=== PATIENT | female | born 1950 | race Caucasian/White ===

== ENCOUNTER 2016-07-18 19:59 | Inpatient (IN) | payer BC, MEDICARE ==
[2016-07-18] MEDS ORDERED: PROPOFOL 100 ML IV ONE (20:21)
[2016-07-18] MEDS ORDERED: NORMAL SALINE 1000 ML 1,000 ML IV ONE (20:40)
[2016-07-18 21:03] LABS: ABSOLUTE BASOPHILS # (AUTO) 0.1 10^3/uL (0.0-0.2); ABSOLUTE EOSINOPHILS # (AUTO) 0.1 10^3/uL (0.0-0.6); ABSOLUTE LYMPHOCYTES (AUTO) 4.1 10^3/uL (0.5-4.7); ABSOLUTE MONOCYTES (AUTO) 0.4 10^3/uL (0.1-1.4); ABSOLUTE NEUT (AUTO) 8.8 10^3/uL (1.7-8.2); BASOPHILS % (AUTO) 0.7 % (0-2); HEMATOCRIT 43.7 % (36.0-47.0); HEMOGLOBIN 13.8 g/dL (12.0-15.5); HGB HCT DIFFERENCE -2.3; LYMPHOCYTES % (AUTO) 30.6 % (13-45); MEAN CORPUSCULAR HEMOGLOBIN 32.4 pg (27.0-33.4); MEAN CORPUSCULAR HGB CONC 31.6 g/dL (32.0-36.0); MONOCYTES % (AUTO) 2.6 % (3-13); RED BLOOD COUNT 4.25 10^6/uL (3.72-5.28); SEGMENTED NEUTROPHILS % (AUTO) 65.1 % (42-78); WHITE BLOOD COUNT 13.6 10^3/uL (4.0-10.5)
[2016-07-18 21:06] LABS: PROTHROMBIN TIME 28.9 SEC (11.4-15.4)
[2016-07-18 21:07] LABS: PARTIAL THROMBOPLASTIN TIME 36.7 SEC (23.5-35.8)
[2016-07-18 21:11] LABS: MEAN CORPUSCULAR VOLUME 101 fl (80-97)
[2016-07-18 21:15] LABS: ALANINE AMINOTRANSFERASE 26 U/L (9-52); ALBUMIN 3.1 g/dL (3.5-5.0); ALKALINE PHOSPHATASE 83 U/L (38-126); ANION GAP 18 (5-19); ASPARTATE AMINO TRANSFERASE 38 U/L (14-36); BILIRUBIN,TOTAL 0.5 mg/dL (0.2-1.3); BLOOD UREA NITROGEN 18 mg/dL (7-20); CALCIUM 8.2 mg/dL (8.4-10.2); CARBON DIOXIDE 19 mmol/L (22-30); CHLORIDE 108 mmol/L (98-107); CREATINE KINASE 71 U/L (30-135); CREATININE RESULT 1.15 mg/dL (0.52-1.25); GLUCOSE 219 mg/dL (75-110); LIPASE 141.9 U/L (23-300); MAGNESIUM 1.9 mg/dL (1.6-2.3); POTASSIUM 5.2 mmol/L (3.6-5.0); SODIUM 144.7 mmol/L (137-145); TOTAL PROTEIN 5.5 g/dL (6.3-8.2)
[2016-07-18 21:26] LABS: VENOUS BLOOD BASE EXCESS -12.9 mmol/L; VENOUS BLOOD HCO3 20.9 mmol/L (20-32)
[2016-07-18 21:26] LABS: CREATINE KINASE MB 1.92 ng/mL (<4.55); TROPONIN I < 0.012 ng/mL
[2016-07-18] MEDS ORDERED: DILTIAZEM HCL/D5W 125 ML IV PRN (21:32)
[2016-07-18] MEDS ORDERED: DILTIAZEM HCL INJ 25 MG/5 ML VIAL IV ONE ×2 (21:32→22:07)
[2016-07-18 21:33] LABS: VENOUS BLOOD PCO2 86.3 mmHg (35-63)
[2016-07-18] MEDS ORDERED: CEFEPIME 1 GM/D5W RTU 50 ML IV ONE (21:33)
[2016-07-18] MEDS ORDERED: MORPHINE SULFATE 10 MG/ML INJ IV ONE (21:33)
[2016-07-18] MEDS ORDERED: FUROSEMIDE INJ/PF 40 MG/4 ML SDV IV ONE ×2 (21:34→23:53)
--- NOTE | 2016-07-18 22:05 | EKG REPORT ---
SEVERITY:- ABNORMAL ECG - SINUS TACHYCARDIA VS PAT WITH 2:1 OR AFLUTTER WITH 2:1 CONDUCTION BORDERLINE LEFT AXIS DEVIATION ANTERIOR INFARCT, OLD PROLONGED QT INTERVAL : Confirmed by: Jacqueline Keller 18-Jul-2016 22:04:06
[2016-07-18 22:21] LABS: APPEARANCE,URINE CLEAR; BILIRUBIN,URINE NEGATIVE (NEGATIVE); GLUCOSE, URINE NEGATIVE (NEGATIVE); KETONES,URINE NEGATIVE (NEGATIVE); LEUKOCYTE ESTERASE,URINE NEGATIVE (NEGATIVE); NITRITE,URINE NEGATIVE (NEGATIVE); PROTEIN,URINE 100 mg/dL (NEGATIVE); URINE SPECIFIC GRAVITY 1.018; UROBILINOGEN,URINE NEGATIVE mg/dL (<2.0)
--- NOTE | 2016-07-18 23:46 | ER Document Report ---
ED General - General Stated Complaint: DIFFICULITY BREATHING TRAVEL OUTSIDE OF THE [place] IN LAST 30 DAYS: No - HPI Patient complains to provider of: respiratory failure Notes: Patient coming in for restarted stress respiratory failure. According to EMS patient has a history of COPD according to family upon their arrival had exacerbation earlier in the day that progressed until restarted stress. Upon their arrival patient was saturating 70% on room air. Patient was transitioned over to C Pap transport to the ER. Patient that all 4 extremities and talking with EMS prior to arrival however upon arrival patient moaning the pain no spontaneous eye movement withdrawing to pain. Patient's skin was mottled patient's patient's feet were blue as well. Patient was initially placed on BiPAP prior to my arrival however upon entering the room informed nursing staff that we will be intubating this patient. - Related Data Allergies/Adverse Reactions: propoxyphene HCl [From Darvon] Allergy (Verified 07/03/16 06:07) Past Medical History - Social History Smoking Status: Smoker,Current Status Unk Family History: Reviewed & Not Pertinent - Past Medical History Cardiac Medical History: Reports: Hx Atrial Fibrillation, Hx Congestive Heart Failure, Hx Coronary Artery Disease, Hx DVT, Hx Heart Attack, Hx Hypercholesterolemia, Hx Hypertension Pulmonary Medical History: Reports: Hx COPD Neurological Medical History: Reports: Hx Cerebrovascular Accident GI Medical History: Reports: Hx Gastroesophageal Reflux Disease Psychiatric Medical History: Reports: Hx Depression Past Surgical History: Reports: Hx Section - x3, Hx Coronary Stent, Hx Tonsillectomy - Immunizations Hx Diphtheria, Pertussis, Tetanus Vaccination: No Review of Systems - Review of Systems -: Yes ROS unobtainable due to patient's medical condition - Critical condition intubated Physical Exam - Vital signs Vitals: Resp 21 H 07/18/16 20:01 Interpretation: Hypertensive, Tachycardic, Hypoxic, Tachypneic - General General appearance: Unresponsive In distress: Severe - HEENT Head: Normocephalic, Atraumatic Eyes: Normal Conjunctiva: Normal Cornea: Normal Pupils: PERRL Neck: Normal - Respiratory Respiratory status: Respiratory distress Chest status: Nontender Breath sounds: Rales, Rhonchi Chest palpation: Normal - Cardiovascular Rhythm: Irregularly irregular, Tachycardia Heart sounds: Normal auscultation Murmur: No - Abdominal Inspection: Normal Distension: No distension Bowel sounds: Normal Tenderness: Nontender Organomegaly: No organomegaly - Back Back: Normal, Nontender - Extremities General upper extremity: Normal inspection, Nontender, Normal temperature. No: Normal color - Mottling General lower extremity: Normal inspection, Nontender. No: Normal color - Mottling patient did had cyanotic toes bilaterally, Normal temperature - Cold feet pulses palpable bilateral dorsalis pedis - Neurological [place] Coma Scale Eye Opening: To Pain [place] Coma Scale Verbal: None [place] Coma Scale Motor: Withdraws to Pain [place] Coma Scale Total: 7 - Psychological Associated symptoms: Other - Unresponsive - Skin Skin Temperature: Warm Skin Moisture: Dry Skin Color: negative: Normal - Mottled Course - Re-evaluation Re-evalutation: 07/19/16 03:05 Patient with poor vascular access upon arrival and I was placed into the right tibia by charge nurse Patient with intubation and placement of NG tube and central line. The intubation was made difficult as that the ER stretcher was placed in the lowest position and was unable to be raised. Did have to use device could of been transitioned over to a Mac blade I did use a bougie to go between the cords then passed a size 8 tube over the bougie. Confirmation of tube placement was confirmed with visualization of the tube within the cords with the glide scope. Social line placed without difficulty. Chest x-ray showed diffuse airspace disease because the patient's severe tachycardia H fibrillation this is more thought to be flash pulmonary edema due to high demand however the possibility of pneumonia cannot be ruled out. Pyridium is also consistent with the pink froth coming out of the patient's ET tube. Because of the patient being unresponsive upon arrival she head CT was performed showing only an old stroke. No acute process. Lab work obtained showed severe rest for acidosis with hypercapnia and settings were adjusted patient did have some more hypoxic episodes going into the mid 80s patient did have her PEEP adjusted ventilator settings adjusted and patient did have to be bagged off the ventilator multiple times after initial intubation. Antibiotics were started for pneumonia patient was also given a dose of Lasix due to pulmonary edema. At this time because patient is therapeutic on her Coumadin did not think she is likely has a PE. Patient's case was discussed with hospitalist patient will be admitted to the ICU 07/19/16 03:08 - Vital Signs Vital signs: Temp Pulse Resp BP Pulse Ox 98.9 F 22 H 97/67 L 93 07/19/16 02:35 07/19/16 02:35 07/19/16 02:35 07/19/16 02:35 - Laboratory Result Diagrams: 07/18/16 20:52 07/19/16 02:12 Laboratory results interpreted by me: 07/18/16 07/18/16 07/18/16 20:52 20:52 20:52 WBC 13.6 H MCV 101 H MCHC 31.6 L Monocytes % 2.6 L Absolute Neutrophils 8.8 H PT 28.9 H APTT 36.7 H VBG pH VBG pCO2 Potassium 5.2 H Chloride 108 H Carbon Dioxide 19 L Est GFR ( Amer) 57 L Est GFR (Non-Af Amer) 48 L Glucose 219 H Lactic Acid Calcium 8.2 L AST 38 H NT-Pro-B Natriuret Pep Total Protein 5.5 L Albumin 3.1 L Urine Protein Urine Blood 07/18/16 07/18/16 07/18/16 20:52 20:52 21:04 WBC MCV MCHC Monocytes % Absolute Neutrophils PT APTT VBG pH 7.00 L* VBG pCO2 86.3 H* Potassium Chloride Carbon Dioxide Est GFR ( Amer) Est GFR (Non-Af Amer) Glucose Lactic Acid 5.0 H Calcium AST NT-Pro-B Natriuret Pep 4610 H Total Protein Albumin Urine Protein Urine Blood 07/18/16 07/18/16 22:10 23:51 WBC MCV MCHC Monocytes % Absolute Neutrophils PT APTT VBG pH 7.05 L* VBG pCO2 83.5 H* Potassium Chloride Carbon Dioxide Est GFR ( Amer) Est GFR (Non-Af Amer) Glucose Lactic Acid Calcium AST NT-Pro-B Natriuret Pep Total Protein Albumin Urine Protein 100 H Urine Blood SMALL H Procedures - Central Line Right Internal jugular Consent obtained: No - emergent consent implied poor vascular access Central line pre-insertion: Sterile PPE donned, Chloraprep applied Central line lumen type: Triple Anesthetic type: 1% Lidocaine mL's of anesthesia: 2 Ultrasound guided: Yes CM at insertion site: 20 Line secured with sutures: Yes Central line post-insertion: Blood return from lumens, Biopatch applied, Sutured , Sterile dressing applied, Position confirmed w/ CXR Number of attempts: 1 Complications: No - Intubation Orotracheal Airway evaluation: Neck immobility Mallampati Classification: Class 3 Medications: Etomidate, Succinylcholine Intubation method: Orotracheal Blade type: Suzette Blade size: 3 ETT size: 8.0 ETT secured at: Lips ETT secured at (cm): 24 Breath Sounds after Intubation: Equal Ventilator settings: SIMV Tidal volume: 450 FiO2: 100 Respirations: 14 PEEP: 5 Post Intubation Xray: Yes Intubation Complications: No complications Critical Care Note - Critical Care Note Total time excluding time spent on procedures (mins): 86 Comments: Multiple evaluations due to patient respiratory failure having to back the patient ultimately due to hypoxia time excludes procedures Discharge - Discharge Clinical Impression: Acute hypercapnic respiratory failure, Atrial fibrillation with RVR Sepsis Qualifiers: Sepsis type: sepsis due to unspecified organism Qualified Code(s): A41.9 - Sepsis, unspecified organism Pulmonary edema Qualifiers: Chronicity: acute Qualified Code(s): J81.0 - Acute pulmonary edema COPD (chronic obstructive pulmonary disease) Qualifiers: COPD type: unspecified COPD Qualified Code(s): J44.9 - Chronic obstructive pulmonary disease, unspecified Pneumonia Qualifiers: Aspiration pneumonia type: unspecified Laterality: unspecified laterality Lung location: unspecified part of lung Condition: Good Disposition: ADMITTED INPATIENT Admitting Provider: Genia Brasher
[2016-07-19 00:06] LABS: VENOUS BLOOD HCO3 22.6 mmol/L (20-32)
[2016-07-19 00:12] LABS: VENOUS BLOOD PCO2 83.5 mmHg (35-63); VENOUS BLOOD PH 7.05 (7.30-7.42)
[2016-07-19] MEDS ORDERED: CEFEPIME INJ 1 GM VIAL ONE (01:07)
[2016-07-19] MEDS ORDERED: 1/2 NORMAL SALINE 1,000 ML IV ONE ×3 (01:17→06:17)
[2016-07-19] MEDS ORDERED: 1/2 NORMAL SALINE 1,000 ML IV PRN (01:17)
[2016-07-19] MEDS ORDERED: DEXTROSE 40% GEL 15 GM TUBE NG PRN ×2 (01:28)
[2016-07-19] MEDS ORDERED: DEXTROSE 50%-WATER 25 GM/50 ML DISP.SYRIN IV PRN ×2 (01:28)
[2016-07-19] MEDS ORDERED: GLUCAGON,HUMAN RECOMB 1 MG INJ IM PRN (01:28)
[2016-07-19] MEDS ORDERED: INSULIN LISPRO 100 UNIT/ML 3 ML VIAL SUBCUT PRN (01:28)
[2016-07-19] MEDS ORDERED: PHARMACY COMMUNICATION ORDER MC NR (01:30)
[2016-07-19] MEDS ORDERED: ACETAMINOPHEN 650 MG SUPP.RECT PR PRN (01:50)
[2016-07-19] MEDS ORDERED: PHARMACY COMMUNICATION ORDER MC SCH (02:00)
[2016-07-19] MEDS ORDERED: VANCOMYCIN HCL 0 MG in DEXTROSE 5%-WATER 250 ML IV NR (02:00)
[2016-07-19] MEDS ORDERED: METHYLPREDNISOLONE INJ 125 MG/2 ML SDV IV ONE (02:15)
[2016-07-19 02:23] LABS: VENOUS BLOOD BASE EXCESS -8.1 mmol/L; VENOUS BLOOD HCO3 23.3 mmol/L (20-32)
[2016-07-19 02:29] LABS: VENOUS BLOOD PCO2 76.6 mmHg (35-63); VENOUS BLOOD PH 7.1 (7.30-7.42)
[2016-07-19 02:34] LABS: ANION GAP 12 (5-19); BLOOD UREA NITROGEN 22 mg/dL (7-20); CALCIUM 7.7 mg/dL (8.4-10.2); CARBON DIOXIDE 22 mmol/L (22-30); CHLORIDE 111 mmol/L (98-107); CREATININE RESULT 1.56 mg/dL (0.52-1.25); GLUCOSE 138 mg/dL (75-110); POTASSIUM 4.6 mmol/L (3.6-5.0); SODIUM 145.1 mmol/L (137-145)
--- NOTE | 2016-07-19 02:37 | PDOC H&P ---
History of Present Illness Admission Date/PCP: LAURI VEE Patient complains of: DIFFICULTY BREATHING History of Present Illness: ZAYRA GALDAMEZ is a 66 year old female with 24/7 home O2 dependent COPD, 2 L oxygen per nasal cannula, who presents to the emergency room for evaluation of above complaint. Patient has been discussed with emergency room physician who evaluated the patient. Patient is intubated and sedated and is able to provide no history whatsoever in terms of acute or chronic events, review of systems, personal habits, family history, etc. No friends or family are present. Old inpatient records are reviewed.. According to emergency room physician, who had earlier spoken with patient's , she's had a 24-hour history of slowly progressive difficulty breathing. No nausea vomiting, fever or chills. No further information available this point in time. Emergency room physician stated patient was cyanotic and in significant respiratory distress upon arrival. Was intubated shortly thereafter. Required Cardizem drip for a time, due to suspected atrial flutter with rapid ventricular response. She has a history of atrial fibrillation. Drip has since been stopped due to rate being quite acceptable. Has had intermittent episodes of hypotension. Admitted to our service July 03 of last year and hospitalized overnight for chest pain. Copies of the history and physical and discharge summary have been reviewed. Laboratory results are listed in [facility] and are reviewed. X-ray summary results are listed below, with full report(s) reviewed. . EKG reviewed and compared to prior tracing from July 03 of last year.. Social history/personal habits: No tobacco use for 4 months; smoked for 36 years prior to that. Occasional alcohol. No illicit drug use. Lives with spouse. No further information available this point in time. Family History : Coronary artery disease, COPD, and hypertension. No further information available this point in time. Allergies/adverse reactions are listed in [facility] and are reviewed. Home medications are reviewed from a copy of her recent discharge summary and are to be reconciled by nursing staff in [facility]. Home medications initially autopopulated into [facility] may not accurately reflect patient's true medications, dosages, and/or frequencies. REVIEW OF SYSTEMS: See history and present illness. No further information available this point in time. PHYSICAL EXAMINATION: Neither height nor weight are recorded on the chart. Temperature 98.4. Blood pressure 97/49. 94% saturation on 100% FiO2, tidal volume 450; PEEP of 8; pressure support 10; rate of 16. Female emergency room nurse Carmen, along with female lead maintenance technician Sarika are present. Obese chronically ill-appearing female who nevertheless appears approximately her stated age. Intubated and sedated, although does partially follow basic commands in terms of slight symmetric exterior work helper of fingers and movement of toes. Skin is warm and dry. No grossly obvious evidence of rash in areas of skin examined. No subcutaneous nodules palpated. ENT: Perhaps Mildly hard of hearing to normal conversation. Eyes: No scleral icterus. Pupils equal and reactive to light at 4 mm. Winfred conjunctivae. Neck is nontender to palpation. Midline trachea. No palpable thyroid nodule mass enlargement or tenderness. Exam slightly limited by endotracheal tube with attaching straps, along with right internal jugular central line with associated dressing. Lymphatic: No palpable cervical or clavicular nodes. Neck and lymphatic exams limited by patient body habitus. Exam slightly limited by endotracheal tube with attaching straps, along with right internal jugular central line with associated dressing. Psychiatric: Can't be adequately evaluated due to her current status. Lungs: Auscultation reveals clear and equal breath sounds bilaterally. No use of accessory respiratory muscles. Cardiovascular: Heart regular rate and rhythm, without gallop murmur or rub. No carotid or abdominal aortic bruits. No ankle or pedal edema. Faintly palpable dorsalis pedis pulses. Abdomen: soft, somewhat obese, nontender with positive bowel sounds. Unable to adequately evaluate abdomen for masses or organomegaly due to body habitus. Extremities: Feet are warm and dry. No calf tenderness to compression. No grossly obvious visual evidence of calf swelling. Gentle manipulation of lower extremities fails to reveal any obvious evidence of injury or instability to knees hips or ankles. Neurologic: Patellar reflexes absent. Absent Babinski. Light touch can't be determined due to her current status. does partially follow basic commands in terms of slight symmetric exterior work helper of fingers and movement of toes. Past Medical History Cardiac Medical History: Reports: Atrial Fibrillation, Congestive Heart Failure , Coronary Artery Disease, DVT, Myocardial Infarction, Hyperlipidema, Hypertension Pulmonary Medical History: Reports: Chronic Obstructive Pulmonary Disease (COPD) GI Medical History: Reports: Gastroesophageal Reflux Disease Psychiatric Medical History: Reports: Depression Past Surgical History Past Surgical History: Reports: Section - x3, Coronary Stent, Tonsillectomy Social History Information Source: Emergency Med Personnel, [facility] Records Lives with: Spouse/Significant other Smoking Status: Former Smoker Frequency of Alcohol Use: Occasional Hx Recreational Drug Use: No Drugs: None Hx Prescription Drug Abuse: No - Advance Directive Resuscitation Status: Full Code Surrogate healthcare decision maker:: Her Family History Family History: Reviewed & Not Pertinent Parental Family History Reviewed: Yes - from hospital records Children Family History Reviewed: Yes Sibling(s) Family History Reviewed.: Yes Medication/Allergy Home Medications: RX: Albuterol Sulfate [Ventolin Hfa] 1 - 2 puff IH Q4 PRN 07/11/14 RX: Ergocalciferol (Vitamin D2) [Vitamin D2] 50,000 unit PO Q7D 07/11/14 RX: Lisinopril 20 mg PO BID 07/11/14 RX: Warfarin Sodium [Coumadin 4 mg Tablet] 4 mg PO ASDIR 07/11/14 RX: Warfarin Sodium [Coumadin] 1 mg PO ASDIR 07/11/14 RX: Clopidogrel Bisulfate [Clopidogrel] 1 tab PO DAILY 03/02/16 RX: Eplerenone 1 tab PO DAILY 03/02/16 RX: Nitroglycerin [Nitrostat] See Protocol SL PRN PRN MDD 3 tabs 03/03/16 RX: Tiotropium [place] [Spiriva Handihaler 5 Cap/Kit (18 Mcg/Cap)] 1 cap IH DAILY #1 kit 03/04/16 Pantoprazole Sodium [Protonix] 40 mg PO DAILY #30 tablet. 07/04/16 Metoprolol Succinate [Toprol XL 100 mg Tablet] 100 mg PO DAILY 07/19/16 Allergies/Adverse Reactions: propoxyphene HCl [From Darvon] Allergy (Verified 07/03/16 06:07) Physical Exam Vital Signs: Temp Pulse Resp BP Pulse Ox 98.4 F 14 98/72 L 92 07/19/16 00:01 07/19/16 00:30 07/19/16 00:01 07/19/16 00:30 Intake & Output 07/18/16 07/19/16 07/20/16 00:59 00:59 00:59 Intake Total 2000 Output Total 30 Balance 1970 Results Laboratory Results: 07/18/16 20:52 07/18/16 20:52 07/18/16 07/18/16 07/18/16 20:52 20:52 20:52 WBC 13.6 H RBC 4.25 Hgb 13.8 Hct 43.7 MCV 101 H MCH 32.4 MCHC 31.6 L RDW 14.0 Plt Count 288 Seg Neutrophils % 65.1 Lymphocytes % 30.6 Monocytes % 2.6 L Eosinophils % 1.0 Basophils % 0.7 Absolute Neutrophils 8.8 H Absolute Lymphocytes 4.1 Absolute Monocytes 0.4 Absolute Eosinophils 0.1 Absolute Basophils 0.1 VBG pH VBG pCO2 VBG HCO3 VBG Base Excess Sodium 144.7 Potassium 5.2 H Chloride 108 H Carbon Dioxide 19 L Anion Gap 18 BUN 18 Creatinine 1.15 Est GFR ( Amer) 57 L Est GFR (Non-Af Amer) 48 L Glucose 219 H Lactic Acid 5.0 H Calcium 8.2 L Magnesium 1.9 Total Bilirubin 0.5 AST 38 H ALT 26 Alkaline Phosphatase 83 Total Protein 5.5 L Albumin 3.1 L Lipase 141.9 Urine Color Urine Appearance Urine pH Ur Specific [place] Urine Protein Urine Glucose (UA) Urine Ketones Urine Blood Urine Nitrite Ur Leukocyte Esterase Urine WBC (Auto) Urine RBC (Auto) 07/18/16 07/18/16 07/18/16 21:04 22:10 23:51 WBC RBC Hgb Hct MCV MCH MCHC RDW Plt Count Seg Neutrophils % Lymphocytes % Monocytes % Eosinophils % Basophils % Absolute Neutrophils Absolute Lymphocytes Absolute Monocytes Absolute Eosinophils Absolute Basophils VBG pH 7.00 L* 7.05 L* VBG pCO2 86.3 H* 83.5 H* VBG HCO3 20.9 22.6 VBG Base Excess -12.9 -10.0 Sodium Potassium Chloride Carbon Dioxide Anion Gap BUN Creatinine Est GFR ( Amer) Est GFR (Non-Af Amer) Glucose Lactic Acid Calcium Magnesium Total Bilirubin AST ALT Alkaline Phosphatase Total Protein Albumin Lipase Urine Color YELLOW Urine Appearance CLEAR Urine pH 5.0 Ur Specific [place] 1.018 Urine Protein 100 H Urine Glucose (UA) NEGATIVE Urine Ketones NEGATIVE Urine Blood SMALL H Urine Nitrite NEGATIVE Ur Leukocyte Esterase NEGATIVE Urine WBC (Auto) 0 Urine RBC (Auto) 0 07/18/16 07/18/16 07/18/16 20:52 20:52 23:51 Creatine Kinase 71 CK-MB (CK-2) 1.92 Troponin I < 0.012 0.016 NT-Pro-B Natriuret Pep 4610 H Impressions: Chest X-Ray 07/18/16 20:39 IMPRESSION: Endotracheal tube tip overlies the mid trachea. Nasogastric catheter is tip is beyond the inferior margin of the image over the region of the body of the stomach. Right IJ central venous catheter tip overlies the right atrium.Increased interstitial and alveolar opacities bilaterally, right greater than left. No pneumothorax. Small right pleural effusion. Head CT 07/18/16 21:36 IMPRESSION: No acute intracranial findings. Old right frontal infarct. Assessment & Plan - Diagnosis (1) Acute on chronic respiratory failure with hypoxia and hypercapnia Is this a current diagnosis for this admission?: YesPlan: Patient will be admitted under COPD exacerbation and pneumonia protocol. Scheduled DuoNeb's. PRN albuterol nebs Solu-Medrol IV Pepcid for gastritis prophylaxis. Pulmonology consult. Antibiotics will consist of Zosyn, intravenous vancomycin, and aztreonam for suspected hospital-acquired pneumonia. Pharmacy to assist with dosing.. Patient is a full code. Knee high SCDs for DVT prophylaxis; with patient being therapeutic on Coumadin in terms of her INR, no need for Lovenox or heparin at this point in time. Time spent in evaluation and management of patient: 90 critical care minutes. (2) Hyperkalemia Is this a current diagnosis for this admission?: YesPlan: Follow-up chemistry. (3) Hypotension Qualifiers: Hypotension type: unspecified hypotension type Qualified Code(s): I95.9 - Hypotension, unspecified Is this a current diagnosis for this admission?: YesPlan: IV fluid bolus, along with maintenance IV fluid. Will add vasopressors if necessary. Vital sign parameters have been entered. (4) CHF (congestive heart failure) Qualifiers: Congestive heart failure type: unspecified congestive heart failure type Congestive heart failure chronicity: unspecified congestive heart failure chronicity Qualified Code(s): I50.9 - Heart failure, unspecified Is this a current diagnosis for this admission?: YesPlan: Has received a dose of intravenous Lasix per emergency room physician. Follow clinically at this point in time. (5) Hospital-acquired pneumonia Is this a current diagnosis for this admission?: Yes (6) Anticoagulated on Coumadin Is this a current diagnosis for this admission?: YesPlan: Daily PT/INR. (7) CKD (chronic kidney disease), stage III Is this a current diagnosis for this admission?: YesPlan: Repeat chemistry. - Inpatient Certification Based on my medical assessment, after consideration of the patient's comorbidities, presenting symptoms, or acuity I expect that the services needed warrant INPATIENT care.: Yes I certify that my determination is in accordance with my understanding of Medicare's requirements for reasonable and necessary INPATIENT services [42 CFR 412.3e].: Yes Medical Necessity: Need For IV Fluids, Need For Continuous Telemetry Monitoring , Need for Nebulizer Therapy and Monitoring of Response, Need for IV Antibiotics , Risk of Diagnosis Which Will Require Inpatient Eval/Care/Monitoring Post Hospital Care: D/C or Transfer Summary
[2016-07-19] MEDS ORDERED: PIPERACILLIN/TAZOBACTAM 4.5 GM VIAL IV PRN (02:48)
[2016-07-19] MEDS ORDERED: AZTREONAM INJ 1 GM VIAL IV SCH (03:00)
[2016-07-19] MEDS ORDERED: PIPERACILLIN SODIUM/TAZOBACTAM 4.5 GM in NORMAL SALINE 100 ML IV ONE (03:00)
[2016-07-19] MEDS: IPRATROPIUM/ALBUTEROL 0.5-2.5 MG/3 ML AMPUL NEB SCH ×4 (03:40→20:04)
[2016-07-19] MEDS ORDERED: AZTREONAM 2 GM in DEXTROSE 5%-WATER 50 ML IV ONE (04:00)
[2016-07-19] MEDS ORDERED: NORMAL SALINE INJ/PF 0.9% 10 ML SDV IV PRN (04:14)
[2016-07-19] MEDS ORDERED: VANCOMYCIN HCL INJ 1000 MG VIAL IV PRN (04:19)
[2016-07-19] MEDS ORDERED: VANCOMYCIN HCL INJ 1000 MG VIAL ONE (04:27)
[2016-07-19] MEDS ORDERED: AZTREONAM INJ 1 GM VIAL ONE ×2 (04:28→04:36)
[2016-07-19] MEDS ORDERED: PIPERACILLIN/TAZOBACTAM 4.5 GM VIAL IV ONE (04:28)
[2016-07-19] MEDS ORDERED: VANCOMYCIN HCL 1,000 MG in DEXTROSE 5%-WATER 250 ML IV ONE (05:00)
[2016-07-19] MEDS: METHYLPREDNISOLONE INJ 125 MG/2 ML SDV IV SCH ×3 (05:12→22:46)
[2016-07-19] MEDS: PIPERACILLIN SODIUM/TAZOBACTAM 4.5 GM in NORMAL SALINE 100 ML IV SCH ×4 (05:16→23:17)
[2016-07-19] MEDS ORDERED: NOREPINEPHRINE BITARTRATE INJ/PF 4 MG/4 ML SDV IV ONE (05:27)
[2016-07-19] MEDS ORDERED: NOREPINEPHRINE BITARTRATE INJ/PF 4 MG/4 ML SDV IV PRN (05:52)
[2016-07-19 06:15] LABS: ARTERIAL BLOOD BASE EXCESS -9.2 mmol/L
[2016-07-19] MEDS ORDERED: PHENYLEPHRINE HCL INJ/PF 10 MG/1 ML SDV ONE (06:21)
[2016-07-19 06:22] LABS: PROTHROMBIN TIME 31.5 SEC (11.4-15.4)
[2016-07-19 06:23] LABS: HEMATOCRIT 38.6 % (36.0-47.0); HEMOGLOBIN 12.4 g/dL (12.0-15.5); HGB HCT DIFFERENCE -1.4; MEAN CORPUSCULAR HEMOGLOBIN 32.5 pg (27.0-33.4); MEAN CORPUSCULAR HGB CONC 32.1 g/dL (32.0-36.0); MEAN CORPUSCULAR VOLUME 101 fl (80-97); RED BLOOD COUNT 3.81 10^6/uL (3.72-5.28); WHITE BLOOD COUNT 26.8 10^3/uL (4.0-10.5)
[2016-07-19] MEDS ORDERED: PHENYLEPHRINE HCL INJ/PF 10 MG/1 ML SDV IV PRN (06:27)
[2016-07-19] MEDS: DEXTROSE 5%-WATER 250 ML with PHENYLEPHRINE HCL 40 MG IV PRN ×4 (06:28→16:31)
[2016-07-19] MEDS: PROPOFOL 100 ML IV PRN ×4 (06:32→22:47)
[2016-07-19 06:35] LABS: ALANINE AMINOTRANSFERASE 41 U/L (9-52); ALKALINE PHOSPHATASE 90 U/L (38-126); ANION GAP 10 (5-19); ASPARTATE AMINO TRANSFERASE 43 U/L (14-36); BILIRUBIN,TOTAL 0.4 mg/dL (0.2-1.3); BLOOD UREA NITROGEN 25 mg/dL (7-20); CARBON DIOXIDE 19 mmol/L (22-30); CHLORIDE 108 mmol/L (98-107); CREATININE RESULT 1.65 mg/dL (0.52-1.25); GLUCOSE 135 mg/dL (75-110); POTASSIUM 4.5 mmol/L (3.6-5.0); SODIUM 137.3 mmol/L (137-145); TOTAL PROTEIN 4.3 g/dL (6.3-8.2)
[2016-07-19 06:51] LABS: CALCIUM 6.8 mg/dL (8.4-10.2)
[2016-07-19 06:52] LABS: BAND NEUTROPHILS % (MANUAL) 1 % (3-5); BASOPHILS % (MANUAL) 0 % (0-2); EOSINOPHILS % (MANUAL) 0 % (0-6); LYMPHOCYTES % (MANUAL) 6 % (13-45); TOTAL CELLS COUNTED 100
[2016-07-19 06:55] LABS: ANISOCYTOSIS SLIGHT; TOXIC GRANULATION SLIGHT
--- NOTE | 2016-07-19 07:32 | Progress Note ---
Provider Note Provider Note: 07/19/2016, 6:25 AM: At this point in time, I called patient's at home. I discussed with him the critical nature of patient's illness and current status, telling him that we have had to add 2 medications just to support her blood pressure. At this point in time he handed the phone to his [id number]. Similar discussion was had with [id number]. Again I told her patient was extremely sick, and that I could not guarantee that she would survive this insult. Told her if there were out of town friends or family, to contact them to come to [place] if they so desire.
[2016-07-19] MEDS ORDERED: NORMAL SALINE 1000 ML 1,000 ML IV PRN (08:42)
[2016-07-19] MEDS: NORMAL SALINE 1000 ML 1,000 ML IV PRN ×4 (09:55→20:26)
[2016-07-19] MEDS: FAMOTIDINE INJ/PF 20 MG/2 ML SDV IV SCH ×2 (09:58→22:46)
--- NOTE | 2016-07-19 10:23 | PDOC PROGRESS REPORT ---
Subjective Progress Note for:: 07/19/16 Subjective:: Patient is intubated and sedated. Physical Exam Vital Signs: Temp Pulse Resp BP Pulse Ox 99.3 F 90 25 H 130/79 H 98 07/19/16 09:29 07/19/16 08:00 07/19/16 09:29 07/19/16 09:29 07/19/16 09:29 Intake & Output 07/18/16 07/19/16 07/20/16 06:59 06:59 06:59 Output Total 30 Balance -30 Weight 81.1 kg General appearance: PRESENT: other - Patient intubated on ventilator. Eye exam: PRESENT: conjunctiva pink. ABSENT: scleral icterus Mouth exam: PRESENT: moist, tongue midline Neck exam: ABSENT: carotid bruit, JVD, tracheal deviation Respiratory exam: PRESENT: prolonged expiratory phas, rhonchi, wheezes Cardiovascular exam: PRESENT: RRR. ABSENT: diastolic murmur, rubs, systolic murmur Pulses: PRESENT: normal carotid pulses Vascular exam: PRESENT: normal capillary refill GI/Abdominal exam: PRESENT: normal bowel sounds, soft. ABSENT: distended, guarding, mass, organolmegaly, rebound, tenderness Extremities exam: ABSENT: calf tenderness, clubbing, pedal edema Neurological exam: PRESENT: other - Intubated and sedated. Psychiatric exam: PRESENT: other - Unable to assess Skin exam: PRESENT: dry, intact, warm. ABSENT: cyanosis, rash Results Laboratory Results: 07/19/16 06:03 07/19/16 06:03 07/19/16 07/19/16 07/19/16 02:12 02:12 06:03 WBC 26.8 H RBC 3.81 Hgb 12.4 Hct 38.6 MCV 101 H MCH 32.5 MCHC 32.1 RDW 14.0 Plt Count 246 Seg Neutrophils % Not Reportable Lymphocytes % Not Reportable Monocytes % Not Reportable Eosinophils % Not Reportable Basophils % Not Reportable Absolute Neutrophils Not Reportable Absolute Lymphocytes Not Reportable Absolute Monocytes Not Reportable Absolute Eosinophils Not Reportable Absolute Basophils Not Reportable Carbonic Acid HCO3/H2CO3 Ratio ABG pH ABG pCO2 ABG pO2 ABG HCO3 ABG O2 Saturation ABG Base Excess VBG pH 7.10 L* VBG pCO2 76.6 H* VBG HCO3 23.3 VBG Base Excess -8.1 FiO2 Sodium 145.1 H Potassium 4.6 Chloride 111 H Carbon Dioxide 22 Anion Gap 12 BUN 22 H Creatinine 1.56 H Est GFR ( Amer) 40 L Est GFR (Non-Af Amer) 33 L Glucose 138 H Calcium 7.7 L Total Bilirubin AST ALT Alkaline Phosphatase Total Protein Albumin 07/19/16 07/19/16 06:03 06:03 WBC RBC Hgb Hct MCV MCH MCHC RDW Plt Count Seg Neutrophils % Lymphocytes % Monocytes % Eosinophils % Basophils % Absolute Neutrophils Absolute Lymphocytes Absolute Monocytes Absolute Eosinophils Absolute Basophils Carbonic Acid 1.35 HCO3/H2CO3 Ratio 13:1 ABG pH 7.23 L ABG pCO2 44.9 ABG pO2 186.5 H ABG HCO3 18.2 L ABG O2 Saturation 99.0 H ABG Base Excess -9.2 VBG pH VBG pCO2 VBG HCO3 VBG Base Excess FiO2 100% Sodium 137.3 Potassium 4.5 Chloride 108 H Carbon Dioxide 19 L Anion Gap 10 BUN 25 H Creatinine 1.65 H Est GFR ( Amer) 38 L Est GFR (Non-Af Amer) 31 L Glucose 135 H Calcium 6.8 L* Total Bilirubin 0.4 AST 43 H ALT 41 Alkaline Phosphatase 90 Total Protein 4.3 L Albumin 2.0 L Impressions: Chest X-Ray 07/18/16 20:39 IMPRESSION: Endotracheal tube tip overlies the mid trachea. Nasogastric catheter is tip is beyond the inferior margin of the image over the region of the body of the stomach. Right IJ central venous catheter tip overlies the right atrium.Increased interstitial and alveolar opacities bilaterally, right greater than left. No pneumothorax. Small right pleural effusion. Head CT 07/18/16 21:36 IMPRESSION: No acute intracranial findings. Old right frontal infarct. Assessment & Plan - Diagnosis (1) Septic shock Is this a current diagnosis for this admission?: YesPlan: The patient clinically has pneumonia. We'll continue with the IV fluids, IV pressors. Patient is on vancomycin, Zosyn, aztreonam. I discussed the severity of the illness with the family and instructed him that she has a high probability of giving her presentation with septic shock. (2) Pneumonia Qualifiers: Aspiration pneumonia type: unspecified Laterality: unspecified laterality Lung location: unspecified part of lung Is this a current diagnosis for this admission?: YesPlan: Patient is being treated with vancomycin, Zosyn, aztreonam. (3) Acute hypercapnic respiratory failure Is this a current diagnosis for this admission?: YesPlan: Patient is intubated and ventilated. She is still slightly acidotic and we will increase the respiratory rate. (4) COPD (chronic obstructive pulmonary disease) Qualifiers: COPD type: unspecified COPD Qualified Code(s): J44.9 - Chronic obstructive pulmonary disease, unspecified Is this a current diagnosis for this admission?: YesPlan: We'll continue with nebulizers when necessary. (5) Hyperkalemia Is this a current diagnosis for this admission?: YesPlan: Resolved. (6) CHF (congestive heart failure) Qualifiers: Congestive heart failure type: unspecified congestive heart failure type Congestive heart failure chronicity: unspecified congestive heart failure chronicity Qualified Code(s): I50.9 - Heart failure, unspecified Is this a current diagnosis for this admission?: YesPlan: Patient is currently volume depleted and will continue with IV fluids. We'll watch closely given her history of congestive heart failure. (7) Hyperlipidemia Qualifiers: Hyperlipidemia type: mixed hyperlipidemia Qualified Code(s): E78.2 - Mixed hyperlipidemia Is this a current diagnosis for this admission?: Yes (8) Hypertension Qualifiers: Hypertension type: essential hypertension Qualified Code(s): I10 - Essential (primary) hypertension Is this a current diagnosis for this admission?: YesPlan: Patient's antihypertensives being held at this time because of the sepsis. (9) Anticoagulated on Coumadin Is this a current diagnosis for this admission?: YesPlan: Coumadin is currently being held. We'll start her on heparin when her INR decreases to below therapeutic range. (10) CKD (chronic kidney disease), stage III Is this a current diagnosis for this admission?: YesPlan: Creatinine has increased. We'll continue with aggressive IV fluid resuscitation. (11) Paroxysmal a-fib Is this a current diagnosis for this admission?: YesPlan: Patient is currently rate control. - Time Critical Time spent with patient: 15-24 minutes - Inpatient Certification Medical Necessity: Need For IV Fluids, Need for IV Antibiotics
[2016-07-19] MEDS ORDERED: ROCURONIUM BROMIDE INJ 50 MG/5 ML VIAL IV ONE (10:47)
[2016-07-19] MEDS: DEXTROSE 5%-WATER 250 ML with NOREPINEPHRINE BITARTRATE 4 MG IV PRN ×6 (10:48→23:18)
[2016-07-19] MEDS ORDERED: NORMAL SALINE 500 ML IV ONE (11:00)
[2016-07-19] MEDS: AZTREONAM 2 GM in DEXTROSE 5%-WATER 100 ML IV SCH ×2 (13:22→22:46)
[2016-07-19] MEDS: ALBUTEROL SULFATE 0.083% NEB 2.5 MG/3 ML AMPUL NEB PRN (13:45)
[2016-07-19] MEDS ORDERED: AZTREONAM 2 GM in DEXTROSE 5%-WATER 50 ML IV SCH (14:00)
[2016-07-19 17:00] LABS: VENOUS BLOOD BASE EXCESS -11.3 mmol/L; VENOUS BLOOD HCO3 16.1 mmol/L (20-32); VENOUS BLOOD PCO2 41.7 mmHg (35-63); VENOUS BLOOD PH 7.2 (7.30-7.42)
[2016-07-19] MEDS ORDERED: PANTOPRAZOLE SODIUM 40 MG VIAL IV ONE (21:09)
[2016-07-19] MEDS ORDERED: NORMAL SALINE 1000 ML 1,000 ML IV ONE (21:25)
[2016-07-19 21:37] LABS: HEMATOCRIT 38.5 % (36.0-47.0); HEMOGLOBIN 12.1 g/dL (12.0-15.5); HGB HCT DIFFERENCE -2.2; MEAN CORPUSCULAR HEMOGLOBIN 31.9 pg (27.0-33.4); MEAN CORPUSCULAR HGB CONC 31.6 g/dL (32.0-36.0); MEAN CORPUSCULAR VOLUME 101 fl (80-97); RED BLOOD COUNT 3.81 10^6/uL (3.72-5.28); RED CELL DISTRIBUTION WIDTH 13.6 % (11.5-14.0); WHITE BLOOD COUNT 29.7 10^3/uL (4.0-10.5)
[2016-07-19 22:01] LABS: ALANINE AMINOTRANSFERASE 58 U/L (9-52); ALBUMIN 1.8 g/dL (3.5-5.0); ALKALINE PHOSPHATASE 76 U/L (38-126); ANION GAP 12 (5-19); ASPARTATE AMINO TRANSFERASE 64 U/L (14-36); BILIRUBIN,TOTAL 0.4 mg/dL (0.2-1.3); BLOOD UREA NITROGEN 28 mg/dL (7-20); CARBON DIOXIDE 14 mmol/L (22-30); CHLORIDE 109 mmol/L (98-107); CREATININE RESULT 1.92 mg/dL (0.52-1.25); GLUCOSE 171 mg/dL (75-110); POTASSIUM 4.1 mmol/L (3.6-5.0); SODIUM 134.7 mmol/L (137-145); TOTAL PROTEIN 3.8 g/dL (6.3-8.2)
[2016-07-19 22:21] LABS: CALCIUM 5.6 mg/dL (8.4-10.2); MAGNESIUM 1.2 mg/dL (1.6-2.3)
[2016-07-19] MEDS ORDERED: MAGNESIUM SULFATE 1 GM/D5W 100 ML IV SCH (22:45)
[2016-07-19] MEDS ORDERED: PANTOPRAZOLE SODIUM 80 MG in NORMAL SALINE 100 ML IV ONE ×4 (23:00)
[2016-07-19] MEDS ORDERED: CALCIUM GLUCONATE 1000 MG/10 ML INJ IV ONE (23:00)
[2016-07-19] MEDS ORDERED: CALCIUM GLUCONATE 1,000 MG in DEXTROSE 5%-WATER 50 ML IV ONE (23:46)
[2016-07-19] MEDS ORDERED: CALCIUM GLUCONATE 1000 MG/10 ML INJ IV PRN (23:54)
[2016-07-20] MEDS: IPRATROPIUM/ALBUTEROL 0.5-2.5 MG/3 ML AMPUL NEB SCH ×3 (01:48→13:29)
[2016-07-20] MEDS: DEXTROSE 5%-WATER 250 ML with PHENYLEPHRINE HCL 40 MG IV PRN ×2 (02:28)
[2016-07-20] MEDS: PROPOFOL 100 ML IV PRN ×3 (04:47→11:37)
[2016-07-20] MEDS: AZTREONAM 2 GM in DEXTROSE 5%-WATER 100 ML IV SCH (05:31)
[2016-07-20] MEDS: PIPERACILLIN SODIUM/TAZOBACTAM 4.5 GM in NORMAL SALINE 100 ML IV SCH ×2 (05:31→11:44)
[2016-07-20] MEDS: METHYLPREDNISOLONE INJ 125 MG/2 ML SDV IV SCH (05:36)
[2016-07-20] MEDS ORDERED: VANCOMYCIN HCL 1,000 MG in DEXTROSE 5%-WATER 250 ML IV SCH (06:00)
[2016-07-20 06:21] LABS: ARTERIAL BLOOD BASE EXCESS -14.5 mmol/L; ARTERIAL BLOOD O2 SATURATION 95.6 % (94-98)
[2016-07-20 06:28] LABS: HEMATOCRIT 37.2 % (36.0-47.0); HEMOGLOBIN 12.1 g/dL (12.0-15.5); HGB HCT DIFFERENCE -0.9; MEAN CORPUSCULAR HEMOGLOBIN 32.4 pg (27.0-33.4); MEAN CORPUSCULAR HGB CONC 32.5 g/dL (32.0-36.0); MEAN CORPUSCULAR VOLUME 100 fl (80-97); RED BLOOD COUNT 3.73 10^6/uL (3.72-5.28); RED CELL DISTRIBUTION WIDTH 13.7 % (11.5-14.0); WHITE BLOOD COUNT 25.5 10^3/uL (4.0-10.5)
[2016-07-20 06:33] LABS: PROTHROMBIN TIME 44.2 SEC (11.4-15.4)
[2016-07-20 06:34] LABS: PARTIAL THROMBOPLASTIN TIME 49.4 SEC (23.5-35.8)
[2016-07-20 06:44] LABS: ANION GAP 15 (5-19); BLOOD UREA NITROGEN 30 mg/dL (7-20); CARBON DIOXIDE 14 mmol/L (22-30); CHLORIDE 109 mmol/L (98-107); CREATININE RESULT 1.91 mg/dL (0.52-1.25); GLUCOSE 191 mg/dL (75-110); POTASSIUM 4.1 mmol/L (3.6-5.0); SODIUM 137.6 mmol/L (137-145); TRIGLYCERIDES 245 mg/dL (<150)
[2016-07-20 06:58] LABS: BAND NEUTROPHILS % (MANUAL) 1 % (3-5); BASOPHILS % (MANUAL) 0 % (0-2); CALCIUM 6.1 mg/dL (8.4-10.2); EOSINOPHILS % (MANUAL) 0 % (0-6); LYMPHOCYTES % (MANUAL) 6 % (13-45); TOTAL CELLS COUNTED 100
[2016-07-20 07:00] LABS: ANISOCYTOSIS SLIGHT; PLATELET CLUMPS PRESENT; TOXIC GRANULATION SLIGHT
[2016-07-20] MEDS ORDERED: DEXTROSE 5%-WATER 1000 ML 1,000 ML with SODIUM BICARBONATE 100 MEQ IV PRN ×2 (08:15)
[2016-07-20] MEDS: DEXTROSE 5%-WATER 250 ML with NOREPINEPHRINE BITARTRATE 4 MG IV PRN ×2 (09:57)
[2016-07-20] MEDS ORDERED: PANTOPRAZOLE SODIUM 40 MG VIAL IV SCH (10:00)
[2016-07-20] MEDS: FAMOTIDINE INJ/PF 20 MG/2 ML SDV IV SCH (10:02)
[2016-07-20] MEDS: ALBUTEROL SULFATE 0.083% NEB 2.5 MG/3 ML AMPUL NEB PRN (11:15)
[2016-07-20 11:52] LABS: ARTERIAL BLOOD BASE EXCESS -12.1 mmol/L; ARTERIAL BLOOD O2 SATURATION 82.1 % (94-98)
--- NOTE | 2016-07-20 12:36 | PDOC PROGRESS REPORT ---
Subjective Progress Note for:: 07/20/16 Subjective:: Patient is intubated and sedated. Physical Exam Vital Signs: Temp Pulse Resp BP Pulse Ox 99.3 F 75 25 H 117/69 100 07/20/16 06:28 07/20/16 08:00 07/20/16 08:00 07/20/16 06:28 07/20/16 08:00 Intake & Output 07/19/16 07/20/16 07/21/16 06:59 06:59 06:59 Intake Total 56257 Output Total 30 5350 275 Balance -30 4662 -275 Weight 81.1 kg 86.7 kg General appearance: PRESENT: other - Patient is intubated and sedated Eye exam: PRESENT: conjunctiva pink Mouth exam: PRESENT: moist, tongue midline, other - ET tube in place Neck exam: ABSENT: JVD Respiratory exam: PRESENT: decreased breath sounds - Bilateral bases., wheezes - Few expiratory wheezes. Cardiovascular exam: PRESENT: RRR. ABSENT: diastolic murmur, rubs, systolic murmur GI/Abdominal exam: PRESENT: normal bowel sounds, soft. ABSENT: distended, guarding, mass, organolmegaly, rebound, tenderness Rectal exam: PRESENT: deferred Extremities exam: ABSENT: calf tenderness, clubbing, pedal edema Neurological exam: PRESENT: other - Intubated and sedated Psychiatric exam: PRESENT: other - Unable to assess Skin exam: PRESENT: dry, intact, warm. ABSENT: cyanosis, rash Results Laboratory Results: 07/20/16 06:05 07/20/16 06:05 07/19/16 07/19/16 07/19/16 06:03 16:50 21:20 WBC 29.7 H RBC 3.81 Hgb 12.1 Hct 38.5 MCV 101 H MCH 31.9 MCHC 31.6 L RDW 13.6 Plt Count 217 Seg Neutrophils % Lymphocytes % Monocytes % Eosinophils % Basophils % Absolute Neutrophils Absolute Lymphocytes Absolute Monocytes Absolute Eosinophils Absolute Basophils Carbonic Acid HCO3/H2CO3 Ratio ABG pH ABG pCO2 ABG pO2 ABG HCO3 ABG O2 Saturation ABG Base Excess VBG pH 7.20 L VBG pCO2 41.7 VBG HCO3 16.1 L VBG Base Excess -11.3 FiO2 Sodium Potassium Chloride Carbon Dioxide Anion Gap BUN Creatinine Est GFR ( Amer) Est GFR (Non-Af Amer) Glucose Calcium Phosphorus Magnesium 1.8 Total Bilirubin AST ALT Alkaline Phosphatase Total Protein Albumin Triglycerides 07/19/16 07/20/16 07/20/16 21:20 06:05 06:05 WBC RBC Hgb Hct MCV MCH MCHC RDW Plt Count Seg Neutrophils % Lymphocytes % Monocytes % Eosinophils % Basophils % Absolute Neutrophils Absolute Lymphocytes Absolute Monocytes Absolute Eosinophils Absolute Basophils Carbonic Acid 1.20 HCO3/H2CO3 Ratio 11:1 ABG pH 7.15 L* ABG pCO2 39.8 ABG pO2 99.0 ABG HCO3 13.6 L ABG O2 Saturation 95.6 ABG Base Excess -14.5 VBG pH VBG pCO2 VBG HCO3 VBG Base Excess FiO2 45% Sodium 134.7 L 137.6 Potassium 4.1 4.1 Chloride 109 H 109 H Carbon Dioxide 14 L 14 L Anion Gap 12 15 BUN 28 H 30 H Creatinine 1.92 H 1.91 H Est GFR ( Amer) 32 L 32 L Est GFR (Non-Af Amer) 26 L 26 L Glucose 171 H 191 H Calcium 5.6 L* 6.1 L* Phosphorus 4.0 Magnesium 1.2 L* Total Bilirubin 0.4 AST 64 H ALT 58 H Alkaline Phosphatase 76 Total Protein 3.8 L Albumin 1.8 L Triglycerides 245 H 07/20/16 07/20/16 07/20/16 06:05 06:05 06:05 WBC 25.5 H RBC 3.73 Hgb 12.1 Hct 37.2 MCV 100 H MCH 32.4 MCHC 32.5 RDW 13.7 Plt Count 209 Seg Neutrophils % Not Reportable Lymphocytes % Not Reportable Monocytes % Not Reportable Eosinophils % Not Reportable Basophils % Not Reportable Absolute Neutrophils Not Reportable Absolute Lymphocytes Not Reportable Absolute Monocytes Not Reportable Absolute Eosinophils Not Reportable Absolute Basophils Not Reportable Carbonic Acid HCO3/H2CO3 Ratio ABG pH ABG pCO2 ABG pO2 ABG HCO3 ABG O2 Saturation ABG Base Excess VBG pH VBG pCO2 VBG HCO3 VBG Base Excess FiO2 Sodium Potassium Chloride Carbon Dioxide Anion Gap BUN Creatinine Est GFR ( Amer) Est GFR (Non-Af Amer) Glucose Calcium Phosphorus Magnesium 2.0 Total Bilirubin AST ALT Alkaline Phosphatase Total Protein Albumin 2.0 L Triglycerides 07/20/16 11:35 WBC RBC Hgb Hct MCV MCH MCHC RDW Plt Count Seg Neutrophils % Lymphocytes % Monocytes % Eosinophils % Basophils % Absolute Neutrophils Absolute Lymphocytes Absolute Monocytes Absolute Eosinophils Absolute Basophils Carbonic Acid 0.92 L HCO3/H2CO3 Ratio 14:1 ABG pH 7.27 L ABG pCO2 30.6 L ABG pO2 51.5 L ABG HCO3 13.6 L ABG O2 Saturation 82.1 L ABG Base Excess -12.1 VBG pH VBG pCO2 VBG HCO3 VBG Base Excess FiO2 45% Sodium Potassium Chloride Carbon Dioxide Anion Gap BUN Creatinine Est GFR ( Amer) Est GFR (Non-Af Amer) Glucose Calcium Phosphorus Magnesium Total Bilirubin AST ALT Alkaline Phosphatase Total Protein Albumin Triglycerides Impressions: Head CT 07/18/16 21:36 IMPRESSION: No acute intracranial findings. Old right frontal infarct. Chest X-Ray 07/20/16 06:00 IMPRESSION: Appropriate support lines and tubes. Overall improved appearance of the chest. Assessment & Plan - Diagnosis (1) Septic shock Is this a current diagnosis for this admission?: YesPlan: The patient clinically has pneumonia. We'll continue with the IV fluids, IV pressors. Patient is on vancomycin, Zosyn. The is considering withdrawing care and is going to discuss this with his children today. (2) Pneumonia Qualifiers: Aspiration pneumonia type: unspecified Laterality: unspecified laterality Lung location: unspecified part of lung Is this a current diagnosis for this admission?: YesPlan: Patient is being treated with vancomycin, Zosyn. Aztreonam will be stopped today. (3) Acute hypercapnic respiratory failure Is this a current diagnosis for this admission?: YesPlan: Patient is intubated and ventilated. She is still acidotic. Pulmonary medicine to manage the ventilator. (4) COPD (chronic obstructive pulmonary disease) Qualifiers: COPD type: unspecified COPD Qualified Code(s): J44.9 - Chronic obstructive pulmonary disease, unspecified Is this a current diagnosis for this admission?: YesPlan: We'll continue with nebulizers when necessary. (5) Hyperkalemia Is this a current diagnosis for this admission?: YesPlan: Resolved. (6) CHF (congestive heart failure) Qualifiers: Congestive heart failure type: unspecified congestive heart failure type Congestive heart failure chronicity: unspecified congestive heart failure chronicity Qualified Code(s): I50.9 - Heart failure, unspecified Is this a current diagnosis for this admission?: YesPlan: will continue with IV fluids. We'll watch closely given her history of congestive heart failure. (7) Hyperlipidemia Qualifiers: Hyperlipidemia type: mixed hyperlipidemia Qualified Code(s): E78.2 - Mixed hyperlipidemia Is this a current diagnosis for this admission?: Yes (8) Hypertension Qualifiers: Hypertension type: essential hypertension Qualified Code(s): I10 - Essential (primary) hypertension Is this a current diagnosis for this admission?: YesPlan: Patient's antihypertensives being held at this time because of the sepsis. (9) Anticoagulated on Coumadin Is this a current diagnosis for this admission?: YesPlan: Coumadin is currently being held. We'll start her on heparin when her INR decreases to below therapeutic range. (10) CKD (chronic kidney disease), stage III Is this a current diagnosis for this admission?: YesPlan: Creatinine has stabilized. We'll continue with aggressive IV fluid resuscitation. (11) Paroxysmal a-fib Is this a current diagnosis for this admission?: YesPlan: Patient is currently rate control. - Time Critical Time spent with patient: 25-34 minutes - Inpatient Certification Medical Necessity: Need Close Monitoring Due to Risk of Patient Decompensation, Need for IV Antibiotics - Plan Summary Plan Summary: The patient's is considering withdrawing care make her comfort care only. Will await on his decision.
[2016-07-20] MEDS ORDERED: MORPHINE SULFATE 10 MG/ML INJ IV PRN (13:13)
[2016-07-20] MEDS: NORMAL SALINE 1000 ML 1,000 ML IV PRN (13:24)
[2016-07-20] MEDS: MORPHINE SULFATE 10 MG/ML INJ IV PRN ×6 (14:53→23:53)
--- NOTE | 2016-07-20 16:40 | PDOC CONSULTATION ---
Consultation Consult Date: 07/19/16 Attending physician:: RUPESH MUSA Consult reason:: resp fail History of Present Illness Admission Date/PCP: 07/19/16 01:26 LAURI VEE History of Present Illness: ZAYRA GALDAMEZ is a 66 year old female patient intubated and sedated all records from current and past admissions reviewed Patient is intubated and sedated and is able to provide no history whatsoever in terms of acute or chronic events, review of systems, personal habits, family history, etc. No friends or family are present. Old inpatient records are reviewed..she's has allegedly had a 24-hour history of slowly progressive difficulty breathing. No nausea vomiting, fever or chills. She was cyanotic and in significant respiratory distress upon arrival. And she was intubated shortly thereafter. Past Medical History Cardiac Medical History: Reports: Atrial Fibrillation, Congestive Heart Failure , Coronary Artery Disease, DVT, Myocardial Infarction, Hyperlipidema, Hypertension Pulmonary Medical History: Reports: Chronic Obstructive Pulmonary Disease (COPD) GI Medical History: Reports: Gastroesophageal Reflux Disease Psychiatric Medical History: Reports: Depression Past Surgical History Past Surgical History: Reports: Section - x3, Coronary Stent, Tonsillectomy Social History Information Source: [facility] Records Lives with: Spouse/Significant other Smoking Status: Former Smoker Number of Years [place] Passive smoke exposure as: Both Frequency of Alcohol Use: Occasional Hx Recreational Drug Use: No Drugs: None Hx Prescription Drug Abuse: No - Advance Directive Resuscitation Status: Full Code Family History Family History: Reviewed & Not Pertinent Parental Family History Reviewed: No Children Family History Reviewed: No Sibling(s) Family History Reviewed.: No Medication/Allergy Home Medications: Albuterol Sulfate [Ventolin Hfa] 1 - 2 puff IH Q4 PRN 07/11/14 Ergocalciferol (Vitamin D2) [Vitamin D2] 50,000 unit PO Q7D 07/11/14 Lisinopril 20 mg PO BID 07/11/14 Warfarin Sodium [Coumadin 4 mg Tablet] 4 mg PO ASDIR 07/11/14 Warfarin Sodium [Coumadin] 1 mg PO ASDIR 07/11/14 Clopidogrel Bisulfate [Clopidogrel] 1 tab PO DAILY 03/02/16 Eplerenone 1 tab PO DAILY 03/02/16 Nitroglycerin [Nitrostat] See Protocol SL PRN PRN MDD 3 tabs 03/03/16 Tiotropium [place] [Spiriva Handihaler 5 Cap/Kit (18 Mcg/Cap)] 1 cap IH DAILY # 1 kit 03/04/16 Pantoprazole Sodium [Protonix] 40 mg PO DAILY #30 tablet. 07/04/16 Metoprolol Succinate [Toprol XL 100 mg Tablet] 100 mg PO DAILY 07/19/16 Allergies/Adverse Reactions: propoxyphene HCl [From Darvon] Allergy (Verified 07/03/16 06:07) Review of Systems ROS unobtainable: Due to endotracheal tube Physical Exam Vital Signs: Temp Pulse Resp BP Pulse Ox 98.1 F 88 25 H 99/67 L 99 07/20/16 14:14 07/20/16 13:32 07/20/16 13:32 07/20/16 14:14 07/20/16 14:14 Intake & Output 07/19/16 07/20/16 07/21/16 06:59 06:59 06:59 Intake Total 62246 Output Total 30 5350 1275 Balance -30 4662 -1275 Weight 81.1 kg 86.7 kg General appearance: PRESENT: no acute distress, disheveled, thin, well-developed , well-nourished Head exam: PRESENT: atraumatic, normocephalic Mouth exam: PRESENT: dry mucosa, neck supple, tongue midline, other - ET tube in place Neck exam: ABSENT: carotid bruit, JVD, lymphadenopathy, thyromegaly Pulses: PRESENT: normal dorsalis pedis pul GI/Abdominal exam: PRESENT: normal bowel sounds, soft. ABSENT: distended, guarding, mass, organolmegaly, rebound, tenderness Rectal exam: PRESENT: deferred Gentrourinary exam: PRESENT: indwelling catheter Musculoskeletal exam: PRESENT: normal inspection Skin exam: PRESENT: dry, pallor Results Laboratory Results: 07/20/16 06:05 07/20/16 06:05 07/19/16 07/19/16 07/19/16 06:03 16:50 21:20 WBC 29.7 H RBC 3.81 Hgb 12.1 Hct 38.5 MCV 101 H MCH 31.9 MCHC 31.6 L RDW 13.6 Plt Count 217 Seg Neutrophils % Lymphocytes % Monocytes % Eosinophils % Basophils % Absolute Neutrophils Absolute Lymphocytes Absolute Monocytes Absolute Eosinophils Absolute Basophils Carbonic Acid HCO3/H2CO3 Ratio ABG pH ABG pCO2 ABG pO2 ABG HCO3 ABG O2 Saturation ABG Base Excess VBG pH 7.20 L VBG pCO2 41.7 VBG HCO3 16.1 L VBG Base Excess -11.3 FiO2 Sodium Potassium Chloride Carbon Dioxide Anion Gap BUN Creatinine Est GFR ( Amer) Est GFR (Non-Af Amer) Glucose Calcium Phosphorus Magnesium 1.8 Total Bilirubin AST ALT Alkaline Phosphatase Total Protein Albumin Triglycerides 07/19/16 07/20/16 07/20/16 21:20 06:05 06:05 WBC RBC Hgb Hct MCV MCH MCHC RDW Plt Count Seg Neutrophils % Lymphocytes % Monocytes % Eosinophils % Basophils % Absolute Neutrophils Absolute Lymphocytes Absolute Monocytes Absolute Eosinophils Absolute Basophils Carbonic Acid 1.20 HCO3/H2CO3 Ratio 11:1 ABG pH 7.15 L* ABG pCO2 39.8 ABG pO2 99.0 ABG HCO3 13.6 L ABG O2 Saturation 95.6 ABG Base Excess -14.5 VBG pH VBG pCO2 VBG HCO3 VBG Base Excess FiO2 45% Sodium 134.7 L 137.6 Potassium 4.1 4.1 Chloride 109 H 109 H Carbon Dioxide 14 L 14 L Anion Gap 12 15 BUN 28 H 30 H Creatinine 1.92 H 1.91 H Est GFR ( Amer) 32 L 32 L Est GFR (Non-Af Amer) 26 L 26 L Glucose 171 H 191 H Calcium 5.6 L* 6.1 L* Phosphorus 4.0 Magnesium 1.2 L* Total Bilirubin 0.4 AST 64 H ALT 58 H Alkaline Phosphatase 76 Total Protein 3.8 L Albumin 1.8 L Triglycerides 245 H 07/20/16 07/20/16 07/20/16 06:05 06:05 06:05 WBC 25.5 H RBC 3.73 Hgb 12.1 Hct 37.2 MCV 100 H MCH 32.4 MCHC 32.5 RDW 13.7 Plt Count 209 Seg Neutrophils % Not Reportable Lymphocytes % Not Reportable Monocytes % Not Reportable Eosinophils % Not Reportable Basophils % Not Reportable Absolute Neutrophils Not Reportable Absolute Lymphocytes Not Reportable Absolute Monocytes Not Reportable Absolute Eosinophils Not Reportable Absolute Basophils Not Reportable Carbonic Acid HCO3/H2CO3 Ratio ABG pH ABG pCO2 ABG pO2 ABG HCO3 ABG O2 Saturation ABG Base Excess VBG pH VBG pCO2 VBG HCO3 VBG Base Excess FiO2 Sodium Potassium Chloride Carbon Dioxide Anion Gap BUN Creatinine Est GFR ( Amer) Est GFR (Non-Af Amer) Glucose Calcium Phosphorus Magnesium 2.0 Total Bilirubin AST ALT Alkaline Phosphatase Total Protein Albumin 2.0 L Triglycerides 07/20/16 11:35 WBC RBC Hgb Hct MCV MCH MCHC RDW Plt Count Seg Neutrophils % Lymphocytes % Monocytes % Eosinophils % Basophils % Absolute Neutrophils Absolute Lymphocytes Absolute Monocytes Absolute Eosinophils Absolute Basophils Carbonic Acid 0.92 L HCO3/H2CO3 Ratio 14:1 ABG pH 7.27 L ABG pCO2 30.6 L ABG pO2 51.5 L ABG HCO3 13.6 L ABG O2 Saturation 82.1 L ABG Base Excess -12.1 VBG pH VBG pCO2 VBG HCO3 VBG Base Excess FiO2 45% Sodium Potassium Chloride Carbon Dioxide Anion Gap BUN Creatinine Est GFR ( Amer) Est GFR (Non-Af Amer) Glucose Calcium Phosphorus Magnesium Total Bilirubin AST ALT Alkaline Phosphatase Total Protein Albumin Triglycerides Impressions: Head CT 07/18/16 21:36 IMPRESSION: No acute intracranial findings. Old right frontal infarct. Chest X-Ray 07/20/16 06:00 IMPRESSION: Appropriate support lines and tubes. Overall improved appearance of the chest. Assessment & Plan - Diagnosis (1) Acute on chronic respiratory failure with hypoxia and hypercapnia Is this a current diagnosis for this admission?: YesPlan: Profoundly acidotic primarily metabolic will increase respiratory rate to help compensate (2) Atrial fibrillation with RVR Is this a current diagnosis for this admission?: YesPlan: Stable at this time (3) COPD (chronic obstructive pulmonary disease) Qualifiers: COPD type: unspecified COPD Qualified Code(s): J44.9 - Chronic obstructive pulmonary disease, unspecified Is this a current diagnosis for this admission?: YesPlan: Continue bronchodilator therapy (4) CKD (chronic kidney disease), stage III Is this a current diagnosis for this admission?: YesPlan: Labs- All tests 24 hr 07/19/16 07/20/16 21:20 06:05 BUN 28 H 30 H Creatinine 1.92 H 1.91 H Follow BUN and creatinine closely - Time Critical Time spent with patient: 35 or more minutes - 55 minutes
[2016-07-20 19:15] VITALS: BP 137/74
[2016-07-21] MEDS: MORPHINE SULFATE 10 MG/ML INJ IV PRN ×2 (04:29→21:41)
[2016-07-21] MEDS ORDERED: SCOPOLAMINE HYDROBROMIDE 1.5 MG PATCH.TD72 TD SCH (10:00)
--- NOTE | 2016-07-21 10:59 | PDOC PROGRESS REPORT ---
Subjective Progress Note for:: 07/21/16 Subjective:: Patient is unresponsive. Physical Exam Vital Signs: Temp Pulse Resp BP Pulse Ox 97.9 F 103 H 11 L 137/74 H 88 L 07/20/16 19:00 07/20/16 19:00 07/20/16 19:00 07/20/16 14:44 07/20/16 19:00 Intake & Output 07/20/16 07/21/16 07/22/16 06:59 06:59 06:59 Intake Total 96243 2830 Output Total 5350 1275 Balance 4662 1555 Weight 86.7 kg General appearance: PRESENT: mild distress Eye exam: PRESENT: conjunctiva pink Mouth exam: PRESENT: dry mucosa Neck exam: ABSENT: JVD Respiratory exam: PRESENT: rales - Bilaterally Cardiovascular exam: PRESENT: tachycardia GI/Abdominal exam: PRESENT: normal bowel sounds, soft. ABSENT: distended, guarding, mass, organolmegaly, rebound, tenderness Neurological exam: PRESENT: other - Unresponsive Psychiatric exam: PRESENT: other - Unable to assess Skin exam: PRESENT: dry, intact, warm. ABSENT: cyanosis, rash Results Laboratory Results: 07/20/16 06:05 07/20/16 06:05 07/20/16 11:35 Carbonic Acid 0.92 L HCO3/H2CO3 Ratio 14:1 ABG pH 7.27 L ABG pCO2 30.6 L ABG pO2 51.5 L ABG HCO3 13.6 L ABG O2 Saturation 82.1 L ABG Base Excess -12.1 FiO2 45% Impressions: Head CT 07/18/16 21:36 IMPRESSION: No acute intracranial findings. Old right frontal infarct. Chest X-Ray 07/20/16 06:00 IMPRESSION: Appropriate support lines and tubes. Overall improved appearance of the chest. Assessment & Plan - Diagnosis (1) Septic shock Is this a current diagnosis for this admission?: YesPlan: The patient is comfort care only. Also has been removed except for morphine. We'll place a scopolamine patch for comfort. (2) Pneumonia Qualifiers: Aspiration pneumonia type: unspecified Laterality: unspecified laterality Lung location: unspecified part of lung Is this a current diagnosis for this admission?: YesPlan: Comfort care only. (3) Acute hypercapnic respiratory failure Is this a current diagnosis for this admission?: YesPlan: (4) COPD (chronic obstructive pulmonary disease) Qualifiers: COPD type: unspecified COPD Qualified Code(s): J44.9 - Chronic obstructive pulmonary disease, unspecified Is this a current diagnosis for this admission?: Yes (5) Hyperkalemia Is this a current diagnosis for this admission?: Yes (6) CHF (congestive heart failure) Qualifiers: Congestive heart failure type: unspecified congestive heart failure type Congestive heart failure chronicity: unspecified congestive heart failure chronicity Qualified Code(s): I50.9 - Heart failure, unspecified Is this a current diagnosis for this admission?: Yes (7) Hyperlipidemia Qualifiers: Hyperlipidemia type: mixed hyperlipidemia Qualified Code(s): E78.2 - Mixed hyperlipidemia Is this a current diagnosis for this admission?: Yes (8) Hypertension Qualifiers: Hypertension type: essential hypertension Qualified Code(s): I10 - Essential (primary) hypertension Is this a current diagnosis for this admission?: Yes (9) Anticoagulated on Coumadin Is this a current diagnosis for this admission?: Yes (10) CKD (chronic kidney disease), stage III Is this a current diagnosis for this admission?: Yes (11) Paroxysmal a-fib Is this a current diagnosis for this admission?: Yes - Time Time Spent with patient: 15-24 minutes - Inpatient Certification Medical Necessity: Need for Pain Control - Plan Summary Plan Summary: Patient is comfort care only.
--- NOTE | 2016-07-21 12:52 | Physician Advisory Note ---
Physician Advisor ProgressNote .: [facility] medical [facility] for this patient. Physician Advisor Statement: Nice documentation in H&P of Acu on chronic Resp FAilure, septic shock, & current 'comfort care only' status. Possible documentation opportunities if attending agrees: 1. "pneumonia of ___ [location], suspect gram-negative hosp-acq'd type given COPD & recent hospitalization" - or do you think corynecbacterium was actually the infecting organism? 2. "Chronic ___ CHF" [?systolic &/or diastolic?] Septic shock dx well supported by unresponsiveness at time of arrival, WBC 13.6 , RR22-24, HR mid-100s, lactate 5.0, need for pressor support. Ac on Chr Resp Failure dx well supported by chronic need for 2L O2 for COPD, documented acute resp distress in ED with tachypnea & tachycardia, "breathing labored" per nursing documentation, color dusky, severe hypoxemia/Ac Resp Acidosis: ED nurse even documented that despite BiPAP, EMS had not been able to achieve O2 sat >80%, & need for urgent intubation in ED. Thanks for your help with documentation accuracy/specificity improvement! Anabelle Peralta MD
[2016-07-21] MEDS ORDERED: GLYCOPYRROLATE INJ 0.4 MG/2 ML VIAL IV PRN (13:26)
[2016-07-21] MEDS ORDERED: ATROPINE SULFATE 1% OPH SOLN 5 ML BOTTLE SL PRN (13:26)
[2016-07-22] MEDS: MORPHINE SULFATE 10 MG/ML INJ IV PRN (05:50)
[2016-07-22] MEDS ORDERED: MORPHINE SULFATE 60 MG/60 ML RTUINJ IV PRN ×2 (09:09→12:39)
--- NOTE | 2016-07-22 10:36 | PDOC PROGRESS REPORT ---
Subjective Progress Note for:: 07/22/16 Subjective:: Patient is unresponsive. Physical Exam Vital Signs: Temp Pulse Resp BP Pulse Ox 97.9 F 76 10 L 137/74 H 85 L 07/20/16 19:00 07/21/16 15:07 07/21/16 15:07 07/20/16 14:44 07/21/16 15:07 Intake & Output 07/21/16 07/22/16 07/23/16 06:59 06:59 06:59 Intake Total 2830 Output Total 1275 240 Balance 1555 -240 Eye exam: PRESENT: conjunctiva pink Mouth exam: PRESENT: dry mucosa Respiratory exam: PRESENT: decreased breath sounds, prolonged expiratory phas Cardiovascular exam: PRESENT: tachycardia GI/Abdominal exam: PRESENT: normal bowel sounds, soft. ABSENT: distended, guarding, mass, organolmegaly, rebound, tenderness Extremities exam: ABSENT: calf tenderness, clubbing, pedal edema Neurological exam: PRESENT: other - Unresponsive Psychiatric exam: PRESENT: appropriate affect Skin exam: PRESENT: dry, intact, warm. ABSENT: cyanosis, rash Results Laboratory Results: 07/20/16 06:05 07/20/16 06:05 Impressions: Head CT 07/18/16 21:36 IMPRESSION: No acute intracranial findings. Old right frontal infarct. Chest X-Ray 07/20/16 06:00 IMPRESSION: Appropriate support lines and tubes. Overall improved appearance of the chest. Assessment & Plan - Diagnosis (1) Septic shock Is this a current diagnosis for this admission?: YesPlan: The patient is comfort care only. Also has been removed except for morphine. We'll place a scopolamine patch for comfort. (2) Pneumonia Qualifiers: Aspiration pneumonia type: unspecified Laterality: unspecified laterality Lung location: unspecified part of lung Is this a current diagnosis for this admission?: YesPlan: Comfort care only. (3) Acute hypercapnic respiratory failure Is this a current diagnosis for this admission?: YesPlan: (4) COPD (chronic obstructive pulmonary disease) Qualifiers: COPD type: unspecified COPD Qualified Code(s): J44.9 - Chronic obstructive pulmonary disease, unspecified Is this a current diagnosis for this admission?: Yes (5) Hyperkalemia Is this a current diagnosis for this admission?: Yes (6) CHF (congestive heart failure) Qualifiers: Congestive heart failure type: unspecified congestive heart failure type Congestive heart failure chronicity: unspecified congestive heart failure chronicity Qualified Code(s): I50.9 - Heart failure, unspecified Is this a current diagnosis for this admission?: Yes (7) Hyperlipidemia Qualifiers: Hyperlipidemia type: mixed hyperlipidemia Qualified Code(s): E78.2 - Mixed hyperlipidemia Is this a current diagnosis for this admission?: Yes (8) Hypertension Qualifiers: Hypertension type: essential hypertension Qualified Code(s): I10 - Essential (primary) hypertension Is this a current diagnosis for this admission?: Yes (9) Anticoagulated on Coumadin Is this a current diagnosis for this admission?: Yes (10) CKD (chronic kidney disease), stage III Is this a current diagnosis for this admission?: Yes (11) Paroxysmal a-fib Is this a current diagnosis for this admission?: Yes - Time Time Spent with patient: 15-24 minutes - Inpatient Certification Medical Necessity: Need Close Monitoring Due to Risk of Patient Decompensation, Need for Pain Control - Plan Summary Plan Summary: According to the family the patient has been uncomfortable any time that she is moved. We will start on a morphine drip at 2 mg per hour.
--- NOTE | 2016-07-22 13:27 | Death Summary ---
Summary Date : 07/22/16 Time of :: 12:47 Autopsy: No Resuscitation Status: Comfort Measures Only Primary Care Provider: Cheo Thomas - Final Diagnosis (1) Septic shock Is this a current diagnosis for this admission?: Yes (2) Pneumonia Is this a current diagnosis for this admission?: Yes (3) Acute hypercapnic respiratory failure Is this a current diagnosis for this admission?: Yes (4) COPD (chronic obstructive pulmonary disease) Is this a current diagnosis for this admission?: Yes (5) Hyperkalemia Is this a current diagnosis for this admission?: Yes (6) CHF (congestive heart failure) Is this a current diagnosis for this admission?: Yes (7) Hyperlipidemia Is this a current diagnosis for this admission?: Yes (8) Hypertension Is this a current diagnosis for this admission?: Yes (9) Anticoagulated on Coumadin Is this a current diagnosis for this admission?: Yes (10) CKD (chronic kidney disease), stage III Is this a current diagnosis for this admission?: Yes (11) Paroxysmal a-fib Is this a current diagnosis for this admission?: Yes Hospital Course:: 66-year-old female who presented with pneumonia and COPD. Patient was septic and had respiratory failure requiring intubation and mechanical ventilation. The patient had worsening clinical status and required vasopressors to support her blood pressure and she was becoming very acidotic with pH 7.1. Was discussed with the family and they agreed to make her comfort care only. She was extubated and at 1247 on 07/22/2016. Cause of #1 sepsis #2 pneumonia #3 COPD.
== END 2016-07-22 14:30 | DRG 871 ==
LOC: ER 19:59 → EH 07-19 01:26 → UNDOADMIN 07-19 01:52 → ICU 07-19 03:15 → 4W 07-20 21:34
PROVIDERS: ADMIT Family Medicine; ATTEND Family Medicine
PROC: 5A1945Z Respiratory Ventilation, 24-96 Consecutive Hours (ICD-10-PCS; principal; 2016-07-18)
PROC: 0BH17EZ Insertion of Endotracheal Airway into Trachea, Via Natural or Artificial Opening (ICD-10-PCS; 2016-07-18)
PROC: 02H633Z Insertion of Infusion Device into Right Atrium, Percutaneous Approach (ICD-10-PCS; 2016-07-18)
PROC: 3E0F73Z Introduction of Anti-inflammatory into Respiratory Tract, Via Natural or Artificial Opening (ICD-10-PCS; 2016-07-19)
DX: A41.9 Sepsis, unspecified organism (principal); J69.0 Pneumonitis due to inhalation of food and vomit; R65.21 Severe sepsis with septic shock; J96.21 Acute and chronic respiratory failure with hypoxia; J96.22 Acute and chronic respiratory failure with hypercapnia; J44.1 Chronic obstructive pulmonary disease with (acute) exacerbation; I13.0 Hypertensive heart and chronic kidney disease with heart failure and stage 1 through stage 4 chronic kidney disease, or unspecified chronic kidney disease; I48.0 Paroxysmal atrial fibrillation; I50.9 Heart failure, unspecified; I25.10 Atherosclerotic heart disease of native coronary artery without angina pectoris; E78.00 Pure hypercholesterolemia, unspecified; K21.9 Gastro-esophageal reflux disease without esophagitis; F32.9 Major depressive disorder, single episode, unspecified; N18.3 Chronic kidney disease, stage 3 (moderate); F17.210 Nicotine dependence, cigarettes, uncomplicated; E87.5 Hyperkalemia; E78.2 Mixed hyperlipidemia; Z99.81 Dependence on supplemental oxygen; I25.2 Old myocardial infarction; Z86.718 Personal history of other venous thrombosis and embolism; Z88.6 Allergy status to analgesic agent; Z86.73 Personal history of transient ischemic attack (TIA), and cerebral infarction without residual deficits; Z95.5 Presence of coronary angioplasty implant and graft; Z79.01 Long term (current) use of anticoagulants; Z79.899 Other long term (current) drug therapy; Z82.49 Family history of ischemic heart disease and other diseases of the circulatory system; Z83.6 Family history of other diseases of the respiratory system
CPT/HCPCS: 36415; 70450; 71010; 80048; 80053; 81001; 82040; 82550; 82553; 82803; 82962; 83605; 83690; 83735; 83880; 84100; 84478; 84484; 85025; 85027; 85610; 85730; 87040; 87070; 87077; 87086; 87186; 87205; 93005; 93010; 94002; 94003; C1751; J0610; J0692; J1815; J1940; J2270; J2370; J2543; J2704; J2930; J3370; J3475; J3490; J7030; J7040; J7060; J7620; S0028; S0164